=== PATIENT | female | born 1955 | race Caucasian/White ===

== ENCOUNTER 2016-07-22 19:21 | Emergency (ER) | payer OTHER ==
[2016-07-22 19:32] VITALS: BP 174/73; PULSE 78; RESP 20; TEMP 98.4
--- NOTE | 2016-07-22 20:07 | ED ---
Skin/Abscess/FB HPI - General Chief complaint: Skin/Abscess/Foreign Body Stated complaint: rash on neck and head Time Seen by Provider: 07/22/16 19:30 Source: patient, RN notes reviewed, old records reviewed Mode of arrival: ambulatory Limitations: no limitations - History of Present Illness Initial comments: This is a 60-year-old female with chief complaint of a pruritic rash over the back of her scalp for the past day. Patient states that it will radiate down her neck and towards the right shoulder. Patient states that she is concerned she may have advised her legs. She reports that she is continuing to scratch this area. She does have a history of hypothyroidism and Graves' disease. She states that she is currently taking her hypothyroid Medicine but hasn't had this checked recently. Patient states she does not see a finger grip machine operator. She denies any history of other people with rash or new contacts of any new lotions or materials. Patient states that she started itching so bad last night that she had a take a shower. Patient denies any fever or chills or other associated symptoms.Patient denies any recent fever, chills, shortness of breath , chest pain, back pain, abdominal pain, nausea vomiting, numbness or tingling, dysuria or hematuria, constipation or diarrhea, headaches or visual changes, or any other current symptoms - Related Data Home Medications Medication Instructions Recorded Confirmed Levothyroxine Sodium [Synthroid] 1 tab PO DAILY 07/22/16 07/22/16 Previous Rx's Medication Instructions Recorded Betamethasone Dipropionate 1 applic TOPICAL BID #1 bottle 07/22/16 [Diprolene 0.05% Lotion] hydrOXYzine HCL [Atarax] 10 mg PO TID #15 tab 07/22/16 predniSONE [Deltasone] 20 mg PO DAILY #7 tablet 07/22/16 Allergies Allergy/AdvReac Type Severity Reaction Status Date / Time No Known Allergies Allergy Verified 07/22/16 19:30 Review of Systems ROS Statement: Those systems with pertinent positive or pertinent negative responses have been documented in the HPI. ROS Other: All systems not noted in ROS Statement are negative. Past Medical History Past Medical History: Thyroid Disorder History of Any Multi-Drug Resistant Organisms: None Reported Past Surgical History: Section Past Psychological History: No Psychological Hx Reported Smoking Status: Never smoker Past Alcohol Use History: None Reported Past Drug Use History: None Reported General Exam - General Exam Comments Initial Comments: 16-year-old female chief complaint of scalp rash. Patient does not appear to be in any acute distress. Limitations: no limitations General appearance: alert, in no apparent distress Head exam: Present: atraumatic, normocephalic, normal inspection, other ( Erythematous like rash over the back of the scalp and neck. No evidence of lice or nits or bedbugs.) Eye exam: Present: normal appearance, PERRL, EOMI. Absent: scleral icterus, conjunctival injection, periorbital swelling ENT exam: Present: normal exam, mucous membranes moist Neck exam: Present: normal inspection. Absent: tenderness, meningismus, lymphadenopathy Respiratory exam: Present: normal lung sounds bilaterally. Absent: respiratory distress, wheezes, rales, rhonchi, stridor Cardiovascular Exam: Present: regular rate, normal rhythm, normal heart sounds. Absent: systolic murmur, diastolic murmur, rubs, gallop, clicks GI/Abdominal exam: Present: soft, normal bowel sounds. Absent: distended, tenderness, guarding, rebound, rigid Extremities exam: Present: normal inspection, full ROM, normal capillary refill. Absent: tenderness, pedal edema, joint swelling, calf tenderness Back exam: Present: normal inspection Neurological exam: Present: alert, oriented X3, CN II-XII intact Psychiatric exam: Present: normal affect, normal mood Skin exam: Present: warm, dry, intact, normal color, rash (Erythematous plaque- like rash over the back of the scalp. Patient reports it's extremely pruritic.) Course Vital Signs 07/22/16 19:30 Temperature 98.4 F Pulse Rate 78 Respiratory 20 Rate Blood Pressure 174/73 O2 Sat by Pulse 97 Oximetry Medical Decision Making - Medical Decision Making Patient is 6-year-old female with a plaque like erythematous rash over the back of the scalp and neck. Rash is similar to psoriasis. No evidence of other areas of the rash. She does have chronically dry skin. She is hypothyroid. Patient started on a steroid cream and steroid pills for the next week. Discussed we can write her for Atarax as well as Benadryl for the itching. Patient advised to follow-up with a finger grip machine operator and primary care provider. No evidence of scabies, lice or nits in the hair. Patient agrees to treatment plan will comply. Return parameters were discussed. Disposition Clinical Impression: Scalp psoriasis Disposition: HOME SELF-CARE Condition: Good Instructions: Dermatitis (ED) Additional Instructions: Patient is to follow-up with her primary care provider. Apply the lotion twice a day scalp and hair. Patient shouldn't take Benadryl and Atarax. Avoid from scratching. Continue use of the emmoliant creams over the rest of your skin. Return to the emergency department if any alarming signs or symptoms occur. Follow-up with finger grip machine operator as soon as possible. Prescriptions: Betamethasone Dipropionate [Diprolene 0.05% Lotion] 1 applic TOPICAL BID #1 bottle hydrOXYzine HCL [Atarax] 10 mg PO TID #15 tab predniSONE [Deltasone] 20 mg PO DAILY #7 tablet Referrals: All Figueroa MD [Primary Care Provider] - 1-2 days Philippe Mcconnell MD [STAFF PHYSICIAN] - 1-2 days Time of Disposition: 20:04
== END 2016-07-22 20:10 | disposition home or self-care (01) ==
LOC: EC 19:21
DX: L40.8 Other psoriasis (principal); R21 Rash and other nonspecific skin eruption; E07.9 Disorder of thyroid, unspecified; Z79.899 Other long term (current) drug therapy
CPT/HCPCS: 99283

== ENCOUNTER → 2017-07-15 | Outpatient (CLI) | payer BC ==
--- NOTE | 2017-07-15 15:00 | US ---
EXAMINATION TYPE: US thyroid st tissue head/neck DATE OF EXAM: 07/15/2017 COMPARISON: NONE CLINICAL HISTORY: Z80.8 FAM HX THYROID CA. Pt states mother has h/o thyroid CA/ Pt states h/o radiati on to thyroid approx 30 yrs ago GLAND SIZE: Right Lobe: 1.9 x 0.6 x 1.0 cm Overall Parenchyma: heterogenous Left Lobe: 2.2 x 0.8 x 0.7 cm Overall Parenchyma: heterogeneous Isthmus Thickness: 0.2 cm Bilateral neck scanned, no evidence of lymphadenopathy. Thyroid heterogeneous, small in size consiste nt with pt's history of radiation. IMPRESSION: Thyroid tissue is heterogeneous correlate for thyroiditis. No sizable discrete thyroid nodule.
== END | disposition home or self-care (01) ==
LOC: RADUSWWP 14:34
PROVIDERS: ATTEND Internal Medicine Endocrinology, Diabetes & Metabolism
DX: Z09 Encounter for follow-up examination after completed treatment for conditions other than malignant neoplasm (principal); R93.8 Abnormal findings on diagnostic imaging of other specified body structures; Z80.9 Family history of malignant neoplasm, unspecified
CPT/HCPCS: 76536

== ENCOUNTER → 2017-08-04 | Outpatient (CLI) | payer BC ==
--- NOTE | 2017-08-05 08:02 | MR ---
EXAMINATION TYPE: MR knee RT wo con DATE OF EXAM: 08/04/2017 COMPARISON: NONE HISTORY: Pain in right inner knee TECHNIQUE: Multiplanar, multisequence imaging of the right knee is performed without IV contrast. FINDINGS: MEDIAL MENISCUS: There is an oblique tear of the posterior horn of the medial meniscus contiguous wit h the inferior articular surface. There is associated meniscal extrusion of 3 mm and 2 mm paramenisca l cyst. LATERAL MENISCUS: There is blunting of the free edge of the posterior horn of the lateral meniscus in addition to a discoid lateral meniscus. Remainder of the lateral meniscus is unremarkable. CRUCIATE LIGAMENTS: The anterior and posterior cruciate ligaments are intact and unremarkable. COLLATERAL LIGAMENTS: The medial collateral ligament and lateral collateral ligament complex are inta ct. High signal seen superficial and deep to the medial collateral ligament indicative of low-grade i njury and suggestive of mild MCL bursitis. EXTENSOR MECHANISM: Visualized quadriceps and patellar tendons are intact. EFFUSION: Very small joint effusion is seen with minimal complexity superiorly such as on PD axial f at sat image 19 and 18 at the lateral aspect. POPLITEAL CYST: There is a multiloculated popliteal cyst measuring up to 3.5 x 1.7 cm situated betwe en the medial head of the gastrocnemius and semimembranosus tendon. TRICOMPARTMENT SPACES: There are small marginal osteophytes of the medial and lateral compartments an d of the patellofemoral compartment with very mild medial compartment joint space narrowing. Joint sp selena narrowing is seen in the patellofemoral compartment. CARTILAGE: There is a full-thickness cartilaginous defect of the medial facet of the patella extendin g to the patellar apex and involving the patellar apex overall measuring 1.5 cm. There is also full-t hickness cartilaginous defect of the lateral patellar facet measuring 1.4 cm. Trochlear cartilage dem onstrates signal heterogeneity laterally and fissuring. There is a full-thickness cartilaginous defects of the medial aspect of the medial femoral condyle me asuring 5 mm at its nonweightbearing surface otherwise there is generalized cartilaginous thinning of the medial compartment. Cartilage of the lateral compartment is unremarkable without partial or full -thickness defects. BONE MARROW SIGNAL: No focal abnormal marrow signal is appreciated. OTHER: Mild nonspecific prepatellar subcutaneous edema and infrapatellar subcutaneous edema.. IMPRESSION: 1. Oblique tear of the posterior horn of the medial meniscus with small 2 mm parameniscal cyst and as sociated 3 mm of meniscal extrusion. Superficial to this there is evidence of low-grade medial collat eral ligament sprain and superficial fluid and may correlate with MCL bursitis. 2. Small tear of the free edge of the posterior horn of the lateral meniscus and overall discoid meni scus morphology. 3. 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 4. Small minimally complex joint effusion suggesting synovitis and 3.5 [address]oculated [address]
== END | disposition home or self-care (01) ==
LOC: RADMRIMAIN 12:16
PROVIDERS: ATTEND Orthopaedic Surgery
DX: S83.281A Other tear of lateral meniscus, current injury, right knee, initial encounter (principal); S83.241A Other tear of medial meniscus, current injury, right knee, initial encounter; S83.411A Sprain of medial collateral ligament of right knee, initial encounter; M17.11 Unilateral primary osteoarthritis, right knee

== ENCOUNTER → 2017-11-26 | Outpatient (CLI) | payer BC ==
--- NOTE | 2017-11-26 09:48 | US ---
EXAMINATION TYPE: US thyroid st tissue head/neck DATE OF EXAM: 11/26/2017 COMPARISON: NONE CLINICAL HISTORY: Z80.8 FAM HX THYROID CA. Thyroid radiated 30 years ago , [pt on synthroid 30 years GLAND SIZE: Right Lobe: 2.2 x 0.6 x 0.6 cm Overall Parenchyma: heterogenous Left Lobe: 1.7 x 0.6 x 0.4 cm Overall Parenchyma: heterogenous Isthmus Thickness: 0.3 cm NODULES RIGHT: # of nodules measured on right: 0 LEFT: # of nodules measured on left: 0 ISTHMUS: # of nodules measured in the isthmus: 0 Bilateral neck scanned, no evidence of lymphadenopathy. IMPRESSION: 1. Negative thyroid ultrasound
== END | disposition home or self-care (01) ==
LOC: RADUSWWP 07:41
PROVIDERS: ATTEND Internal Medicine Endocrinology, Diabetes & Metabolism
DX: Z13.228 Encounter for screening for other metabolic disorders (principal); Z80.8 Family history of malignant neoplasm of other organs or systems
CPT/HCPCS: 76536

== ENCOUNTER → 2018-08-09 | Outpatient (CLI) | payer SELFPAY | END | disposition home or self-care (01) | LOC: LABWHC1 13:30 | PROVIDERS: ATTEND Internal Medicine Endocrinology, Diabetes & Metabolism | DX: E89.0 Postprocedural hypothyroidism (principal) | CPT/HCPCS: 36415; 84443 ==

== ENCOUNTER → 2019-02-23 | Outpatient (CLI) | payer OTHER | END | disposition home or self-care (01) | LOC: LABWHC1 12:46 | PROVIDERS: ATTEND Internal Medicine Endocrinology, Diabetes & Metabolism | DX: E03.8 Other specified hypothyroidism (principal) | CPT/HCPCS: 36415; 84443 ==

== ENCOUNTER 2019-03-19 12:18 | Emergency (ER) | payer OTHER ==
[2019-03-19 12:39] VITALS: RESP 18; TEMP 97.9
[2019-03-19] MEDS ORDERED: methylPREDNISolone SOD SUCCI 125 MG/2 ML VIAL IM ONE (13:16)
--- NOTE | 2019-03-19 13:49 | XR ---
EXAMINATION TYPE: XR chest 2V DATE OF EXAM: 03/19/2019 COMPARISON: NONE HISTORY: Cough, congestion, and shortness of breath TECHNIQUE: Frontal and lateral views of the chest are obtained. FINDINGS: There is chronic parenchymal change without suspicious focal air space opacity, pleural ef fusion, or pneumothorax seen. The cardiac silhouette size is upper limits of normal. The osseous s tructures are intact. IMPRESSION: Chronic changes without suspicious acute pulmonary process.
[2019-03-19] MEDS ORDERED: IPRATROPIUM-ALBUTEROL 3 ML NEB INHALATION STA (13:50)
[2019-03-19 14:20] VITALS: PULSE 100
--- NOTE | 2019-03-19 14:30 | ED ---
URI HPI - General Chief Complaint: Upper Respiratory Infection Stated Complaint: SOB, congestion Time Seen by Provider: 03/19/19 12:48 Source: patient, family Mode of arrival: ambulatory Limitations: no limitations - History of Present Illness Initial Comments: 64-year-old female with history of COPD presents emergency department today for chief complaint of cough congestion. Patient states that she has had cough and congestion for the past 2-3 days. She states she is now having significant sputum production. She states her sick people in her home mom with diagnosed RSV. Patient denies any chest pain. She states when she coughs hard she is short of breath otherwise she denies any shortness of breath at rest. Patient denies any leg swelling denies any abdominal pain and epigastric pain nausea vomiting or diarrhea. Patient denies recording any fevers. Patient states that she performed a DuoNeb prior to arrival. Patient denies recent antibiotic use review of systems negative upon arrival patient appears well signs of acute distress - Related Data Home Medications Medication Instructions Recorded Confirmed Levothyroxine Sodium [Synthroid] 1 tab PO DAILY 07/22/16 07/22/16 Previous Rx's Medication Instructions Recorded Betamethasone Dipropionate 1 applic TOPICAL BID #1 bottle 07/22/16 [Diprolene 0.05% Lotion] hydrOXYzine HCL [Atarax] 10 mg PO TID #15 tab 07/22/16 predniSONE [Deltasone] 20 mg PO DAILY #7 tablet 07/22/16 Azithromycin [Zithromax Z-pack] 0 mg PO DIRECTED #6 tab 03/19/19 predniSONE 20 mg PO DAILY 5 Days #5 tab 03/19/19 Allergies Allergy/AdvReac Type Severity Reaction Status Date / Time No Known Allergies Allergy Verified 03/19/19 12:37 Review of Systems ROS Statement: Those systems with pertinent positive or pertinent negative responses have been documented in the HPI. ROS Other: All systems not noted in ROS Statement are negative. Past Medical History Past Medical History: Thyroid Disorder History of Any Multi-Drug Resistant Organisms: None Reported Past Surgical History: Section Past Psychological History: No Psychological Hx Reported Smoking Status: Current every day smoker Past Alcohol Use History: None Reported Past Drug Use History: None Reported General Exam - General Exam Comments Initial Comments: General: The patient is awake and alert, in no distress, and does not appear acutely ill. Eye: +3 mm pupils are equal, round and reactive to light, extra-ocular movements are intact. No nystagmus. There is normal conjunctiva bilaterally. No signs of icterus. No photophobia Ears, nose, mouth and throat: There are moist mucous membranes and no oral lesions. Oropharynx was not erythematous there is no tonsillar enlargement exudates or lesions. Uvula midline. Tympanic membranes are not erythematous or is no effusions bulging or retraction. No tenderness to palpation of the mastoid. No anterior cervical lymphadenopathy. Rhinorrhea, clear and bilateral nares. No tripoding, no drooling. Neck: The neck is supple, there is no tenderness or JVD. No nuchal rigidity Cardiovascular: There is a regular rate and rhythm. No murmur, rub or gallop is appreciated. Respiratory: Respirations are non-labored, breath sounds are equal. Mild expiratory wheeze. No stridor, rales, or rhonchi. No retractions or abdominal breathing. Gastrointestinal: Soft, non-distended, non-tender abdomen without masses or organomegaly noted. There is no rebound or guarding present. Bowel sounds are unremarkable. Musculoskeletal: Normal ROM, no tenderness. Strength 5/5. Sensation intact. Radial pulses equal bilaterally 2+. Neurological: A&O x 3. CN II-XII intact grossly, There are no obvious motor or sensory deficits. Coordination appears grossly intact. Speech appears normal, no muffling. Skin: Skin is warm and dry and no rashes or lesions are noted. No extremity edema Psychiatric: Cooperative Limitations: no limitations Course Vital Signs 03/19/19 03/19/19 03/19/19 12:37 13:30 14:00 Temperature 97.9 F Pulse Rate 106 H 89 88 Respiratory 18 18 Rate Blood Pressure 168/85 155/86 166/79 O2 Sat by Pulse 95 98 99 Oximetry 03/19/19 03/19/19 14:11 14:19 Temperature Pulse Rate 104 H 100 Respiratory Rate Blood Pressure O2 Sat by Pulse Oximetry Medical Decision Making - Medical Decision Making Very well-appearing 64 female with history of COPD presented for cough congestion of positive sick contacts at home. Influenza testing negative chest x-ray revealed no findings consistent with a localized pneumonia however there is flattening of the diaphragm that is consistent patient previous diagnosis of COPD. Patient states she has no shortness of breath she is in a coughing fit. Patient denies any chest pain. Admits to sputum production. Givens patient history of COPD patient will be treated with azithromycin and steroids. Patient initially refused DuoNeb treatment states she has some at home however later agreed to treatment. Patient improvement of air movement as well as x-ray wheeze after treatment. Patient appears well no signs of acute distress she states she is ready for discharge discussed case with attending by Dr. Ochoa was agreeable care plan of DuoNeb treatments at home steroids azithromycin. Patient discharged appearing well Ventricular rate 92 beats were minute, AL interval 170 ms, QRS duration 94 ms, QT/QTC 36/[address] elevation or depression normal R-wave progression. EKG percent interpreted and reviewed them attending provider - Lab Data Lab Results 03/19/19 Range/Units 13:50 Influenza Type A RNA Not Detected (Not Detectd) Influenza Type B (PCR) Not Detected (Not Detectd) Disposition Clinical Impression: Upper respiratory infection Disposition: HOME SELF-CARE Condition: Good Instructions (If sedation given, give patient instructions): Upper Respiratory Infection (ED) Additional Instructions: Please use medication as discussed. Please follow-up with family doctor in the next 2 days. Please return to emergency room if the symptoms increase or worsen or for any other concerns. Prescriptions: predniSONE 20 mg PO DAILY 5 Days #5 tab Azithromycin [Zithromax Z-pack] 0 mg PO DIRECTED #6 tab Is patient prescribed a controlled substance at d/c from ED?: No Referrals: All Figueroa MD [Primary Care Provider] - 1-2 days Time of Disposition: 14:29
[2019-03-19 14:46] VITALS: BP 166/79
== END 2019-03-19 14:46 | disposition home or self-care (01) ==
LOC: EC 12:18
DX: J06.9 Acute upper respiratory infection, unspecified (principal); E07.9 Disorder of thyroid, unspecified; F17.200 Nicotine dependence, unspecified, uncomplicated; Z87.09 Personal history of other diseases of the respiratory system; Z79.890 Hormone replacement therapy
CPT/HCPCS: 94640; 93005; 87502; 71046; 99285; 96372; J2930

== ENCOUNTER → 2019-05-23 | Outpatient (CLI) | payer OTHER | END | disposition home or self-care (01) | LOC: LABWHC1 13:32 | PROVIDERS: ATTEND Internal Medicine Endocrinology, Diabetes & Metabolism | DX: E03.8 Other specified hypothyroidism (principal) | CPT/HCPCS: 36415; 84443 ==

== ENCOUNTER → 2019-11-15 | Outpatient (CLI) | payer SELFPAY | END | disposition home or self-care (01) | LOC: LABWHC1 11:26 | PROVIDERS: ATTEND Internal Medicine Endocrinology, Diabetes & Metabolism | DX: E03.8 Other specified hypothyroidism (principal) | CPT/HCPCS: 36415; 84443 ==

== ENCOUNTER → 2020-08-01 | Outpatient (CLI) | payer OTHER | END | disposition home or self-care (01) | LOC: LABWHC1 14:58 | PROVIDERS: ATTEND Internal Medicine Endocrinology, Diabetes & Metabolism | DX: E03.8 Other specified hypothyroidism (principal) | CPT/HCPCS: 36415; 84443 ==

== ENCOUNTER → 2021-02-05 | Outpatient (CLI) | payer MEDICARE | END | disposition home or self-care (01) | LOC: LABWHC1 10:51 | PROVIDERS: ATTEND Internal Medicine Endocrinology, Diabetes & Metabolism | DX: E03.8 Other specified hypothyroidism (principal) | CPT/HCPCS: 36415; 84443 ==

== ENCOUNTER → 2021-10-21 | Outpatient (CLI) | payer MEDICARE ==
[2021-10-21 23:26] LABS: T4, Free (Free Thyroxine) 0.99 ng/dL (0.800-1.800)
== END | disposition home or self-care (01) ==
LOC: LABWHC1 14:58
PROVIDERS: ATTEND Internal Medicine Endocrinology, Diabetes & Metabolism
DX: E03.8 Other specified hypothyroidism (principal)
CPT/HCPCS: 36415; 84439; 84443

== ENCOUNTER → 2022-11-26 | Outpatient (CLI) | payer MEDICARE | END | disposition home or self-care (01) | LOC: LABWHC1 14:54 | PROVIDERS: ATTEND Internal Medicine Endocrinology, Diabetes & Metabolism | DX: E03.9 Hypothyroidism, unspecified (principal) | CPT/HCPCS: 36415; 84443 ==

== ENCOUNTER → 2023-05-18 | Outpatient (CLI) | payer MEDICARE ==
--- NOTE | 2023-05-18 15:12 | MM ---
Reason for Exam: Screening (asymptomatic). Patient History: Menarche at age 13. First Full-Term at age 17. Postmenopausal. Maternal aunt had breast cancer. Risk Values: Wendy 5 year model risk: 1.2%. NCI Lifetime model risk: 4.0%. Prior Study Comparison: No prior studies available for comparison. Tissue Density: The breast tissue is heterogeneously dense. This may lower the sensitivity of mammography. Findings: Analyzed By CAD. Dense parenchymal tissue is present bilaterally. Benign vascular calcifications present bilaterally. There are small rounded densities within the right breast with partially obscured margins. There is an oval density within the inferior left breast lower outer quadrant. Short-term follow-up is recommended. Left breast:No suspicious groups of microcalcifications, spiculated or lobular masses, architectural distortion or other secondary signs of malignancy are mammographically apparent. Overall Assessment: Incomplete: need additional imaging evaluation, BI-RAD 0 Management: Diagnostic Breast Ultrasound of both breasts. Diagnostic Mammogram of both breasts. A negative mammogram report should not preclude additional follow up of suspicious palpable abnormalities. Patient should continue monthly self breast exam. A clinical breast exam by your physician is recommended on an annual basis and results should be correlated with mammographic findings. Electronically signed and approved by: Harvey Maldonado D.O. Radiologis
== END | disposition home or self-care (01) ==
LOC: RADMAMWWP 12:03
PROVIDERS: ATTEND Family Medicine
DX: Z12.31 Encounter for screening mammogram for malignant neoplasm of breast (principal); Z78.0 Asymptomatic menopausal state; Z80.3 Family history of malignant neoplasm of breast
CPT/HCPCS: 77063; 77067

== ENCOUNTER → 2023-06-23 | Outpatient (CLI) | payer MEDICARE | END | disposition home or self-care (01) | LOC: LABWHC1 12:00 | PROVIDERS: ATTEND Internal Medicine Endocrinology, Diabetes & Metabolism | DX: E03.8 Other specified hypothyroidism (principal) | CPT/HCPCS: 36415; 84443 ==

== ENCOUNTER → 2023-12-07 | Outpatient (CLI) | payer MEDICARE ==
--- NOTE | 2023-12-07 18:56 | MR ---
EXAMINATION TYPE: MR brain/cspine wo/w DATE OF EXAM: 12/07/2023 COMPARISON: None HISTORY: Left arm weakness. CONTRAST: Performed utilizing 11 mL intravenous Gadavist gadolinium contrast. TECHNIQUE: Multiplanar, multiecho imaging on a 3.0 Nila magnet is performed through the brain. Stud y is performed within 24 hours of arrival to the hospital. The craniovertebral junction is normal. The pituitary is normal. Diffusion-weighted imaging is performed. No abnormal hyperintensity is present to suggest an acute i ntracranial infarct or acute ischemic change. There is some minimal periventricular white matter hyperintensity on inversion recovery weighted sequ ences, likely on the basis of chronic white matter ischemic changes. No abnormal enhancement is evident within the calvarium. Ventricles and sulci are appropriate for the patient age. Retention cyst may be within the left maxillary sinus. IMPRESSION: 1. Minimal chronic appearing white matter ischemic type changes with some atrophy. EXAMINATION TYPE: MR brain/cspine wo/w DATE OF EXAM: 12/07/2023 COMPARISON: None HISTORY: Left arm weakness. CONTRAST: Performed utilizing 11 mL intravenous Gadavist gadolinium contrast. TECHNIQUE: Multiplanar multiecho imaging on a 3.0 Nila magnet is performed through the cervical spin e. FINDINGS: The craniovertebral junction is normal. Vertebral body alignment is normal. No suspiciou s enhancement is evident. C7-T1: No focal disc herniation or significant disc bulge is evident. No spinal canal stenosis or n eural foraminal stenosis is present. C6-7: Broad-based left paracentral disc herniation is present with moderate anterior thecal sac impre ssion. This comes in close approximation with the spinal cord. No cord deformity or spinal canal sten osis is evident. Correlate with left radicular symptoms.. C5-6: Broad-based disc bulge is present with anterior thecal sac compression. Cord contact and some c ord deformity is present. This is greater in the right paracentral region than on the left. Underlyin g spinal canal narrowing may be present. Bilateral foraminal narrowing is present. C4-5: A broad based disc bulge is present with moderate anterior thecal sac compression. Cord contact is evident. No deformity is not evident. Bilateral foraminal narrowing is present. C3-4: No focal disc herniation or significant disc bulge is evident. No spinal canal stenosis or benjy ral foraminal stenosis is present. C2-3: No focal disc herniation or significant disc bulge is evident. No spinal canal stenosis or benjy ral foraminal stenosis is present. IMPRESSION: 1. Left paracentral disc herniation C6-7 with moderate anterior thecal sac and impression, correlate for left radicular symptoms. 2. Broad-based disc bulge C5-6, greater in the right paracentral region in the left paracentral regio n. Spinal canal narrowing appears to be present with some moderate bilateral foraminal narrowing pres ent. Cord contact is evident at this level. 3. Broad-based disc bulge C4-5 with cord contact without cord deformity. [facility], , 12/07/2023 6:53 PM
== END | disposition home or self-care (01) ==
LOC: RADMRIMAIN 17:20
PROVIDERS: ATTEND Psychiatry & Neurology Neurology
DX: R29.898 Other symptoms and signs involving the musculoskeletal system
CPT/HCPCS: 70553; 72156

== ENCOUNTER 2024-03-23 12:29 | Emergency (ER) | payer MEDICARE ==
[2024-03-23 12:47] VITALS: TEMP 98.1
--- NOTE | 2024-03-23 13:38 | CT ---
EXAMINATION TYPE: CT brain wo con DATE OF EXAM: 03/23/2024 1:30 PM COMPARISON: None. CLINICAL INDICATION: Female, 69 years old with history of fall head injury, left sided weakness TECHNIQUE: CT of the brain is performed utilizing 3 mm thick sections through the posterior fossa and 3 mm thick sections through the remaining calvarium. Study is performed within 24 hours of arrival to the hospital. Contrast used: mL of , (none if empty) CT DLP: 1125.4 mGycm, Automated exposure control for dose reduction was used. FINDINGS: No abnormal hyperdensity is present to suggest an acute intracranial hemorrhage. No mass lesion is evident. No acute infarcts are evident. Ventricles and sulci are appropriate for the patient age. Paranasal sinuses and mastoid air cells within the [id number] are clear. IMPRESSION: 1. No acute intracranial process. Follow up MRI can be performed as clinically indicated. [facility], Workstation: [facility], 03/23/2024 1:36 PM
--- NOTE | 2024-03-23 13:54 | ED ---
General Adult HPI - General Chief complaint: Head Injury Stated complaint: Fall-head injury Time Seen by Provider: 03/23/24 13:18 Source: patient, family, RN notes reviewed Mode of arrival: ambulatory Limitations: no limitations - History of Present Illness Initial comments: Patient is a 69-year-old female present to the emergency department following a fall. Incident occurred 2 days ago. Patient did strike her head. No loss of consciousness. Patient previously was on aspirin. Patient has left-sided deficits and off balance from her neck problem. Patient is scheduled to have neck surgery tomorrow for this. These are not new symptoms. Patient only has mild discomfort of her head. Patient does have mild discomfort left ribs as well. Patient states this occurred while getting up from the fall, patient states she pulled a muscle. No discomfort at rest. Only discomfort with movement. - Related Data Home Medications Medication Instructions Recorded Confirmed Levothyroxine Sodium [Synthroid] 1 tab PO DAILY 07/22/16 07/22/16 Previous Rx's Medication Instructions Recorded Betamethasone Dipropionate 1 applic TOPICAL BID #1 bottle 07/22/16 [Diprolene 0.05% Lotion] hydrOXYzine HCL [Atarax] 10 mg PO TID #15 tab 07/22/16 predniSONE [Deltasone] 20 mg PO DAILY #7 tablet 07/22/16 Azithromycin [Zithromax Z-pack (6 0 mg PO DIRECTED #6 tab 03/19/19 tabs)] predniSONE [Deltasone] 20 mg PO DAILY 5 Days #5 tab 03/19/19 Allergies Allergy/AdvReac Type Severity Reaction Status Date / Time No Known Allergies Allergy Verified 03/23/24 12:47 Review of Systems ROS Statement: Those systems with pertinent positive or pertinent negative responses have been documented in the HPI. ROS Other: All systems not noted in ROS Statement are negative. Constitutional: Denies: fever Eyes: Denies: eye pain Cardiovascular: Reports: as per HPI Endocrine: Denies: fatigue Gastrointestinal: Denies: abdominal pain Musculoskeletal: Reports: as per HPI. Denies: back pain Neurological: Reports: as per HPI Past Medical History Past Medical History: Hyperlipidemia, Thyroid Disorder History of Any Multi-Drug Resistant Organisms: None Reported Past Surgical History: Section Past Psychological History: No Psychological Hx Reported Smoking Status: Former smoker Past Alcohol Use History: None Reported Past Drug Use History: None Reported General Exam Limitations: no limitations General appearance: alert, in no apparent distress Head exam: Present: other (Left forehead ecchymosis) Eye exam: Present: normal appearance Neck exam: Present: normal inspection. Absent: tenderness Respiratory exam: Present: normal lung sounds bilaterally Cardiovascular Exam: Present: regular rate, normal rhythm GI/Abdominal exam: Present: soft. Absent: distended, tenderness, guarding, rebound, rigid Extremities exam: Present: normal inspection Neurological exam: Present: other (Left-sided weakness) Psychiatric exam: Present: normal affect, normal mood Skin exam: Present: other (Ecchymosis left forehead) Course Vital Signs 03/23/24 03/23/24 12:40 14:16 Temperature 98.1 F Pulse Rate 77 71 Respiratory 18 20 Rate Blood Pressure 141/82 149/67 O2 Sat by Pulse 95 97 Oximetry Medical Decision Making - Medical Decision Making Was pt. sent in by a medical professional or institution (, PA, FAMILY COUNSELOR, urgent care, hospital, or half-way...) When possible be specific @ -No Did you speak to anyone other than the patient for history (EMS, parent, family, police, friend...)? What history was obtained from this source @ -Daughter is present helps provide history including her concern for potential rib injury Did you review nursing and triage notes (agree or disagree)? Why? @ -I reviewed and agree with nursing and triage notes Were old charts reviewed (outside hosp., previous admission, EMS record, old EKG, old radiological studies, urgent care reports/EKG's, half-way records)? Report findings @ -No old charts were reviewed Differential Diagnosis (chest pain, altered mental status, abdominal pain women, abdominal pain men, vaginal bleeding, weakness, fever, dyspnea, syncope, headache, dizziness, GI bleed, back pain, seizure, CVA, palpatations, mental health, musculoskeletal)? @ -Differential Musculoskeletal Muscular strain, contusion, ligament sprain, fracture, arthritis, septic arthritis, bursitis, cellulitis, muscle spasm, nerve compression, DVT, arterial occlusion, herpes zoster, electrolyte abnormality, tumor.... This is not meant to be in all inclusive list EKG interpreted by me (3pts min.). @ -As above X-rays interpreted by me (1pt min.). @ -Left ribs and chest x-ray shows left sixth and seventh rib fractures. Questionable [address] interpreted by me (1pt min.). @ -CT scan of the brain without acute abnormality U/S interpreted by me (1pt. min.). @ -None done What testing was considered but not performed or refused? (CT, X-rays, U/S, labs)? Why? @ -None What meds were considered but not given or refused? Why? @ -None Did you discuss the management of the patient with other professionals (professionals i.e. , PA, FAMILY COUNSELOR, lab, RT, psych nurse, psych social worker, sole rounder, teacher, home school liaison officer, behavioral health case manager)? Give summary @ -No Was smoking cessation discussed for >3mins.? @ -No Was critical care preformed (if so, how long)? @ -No Were there social determinants of health that impacted care today? How? (Homelessness, low income, unemployed, alcoholism, drug addiction, transportation, low edu. Level, literacy, decrease access to med. care, skilled nursing, rehab)? @ -No Was there de-escalation of care discussed even if they declined (Discuss DNR or withdrawal of care, Hospice)? DNR status @ -No What co-morbidities impacted this encounter? (DM, HTN, Smoking, COPD, CAD, Cancer, CVA, ARF, Chemo, Hep., AIDS, mental health diagnosis, sleep apnea, morbid obesity)? @ -None Was patient admitted / discharged? Hospital course, mention meds given and route, prescriptions, significant lab abnormalities, going to OR and other pertinent info. @ -Patient presents with fall with head injury and left rib pain. CT head unremarkable. X-ray of the ribs with fracture. Patient and family updated. Patient has scheduled neck surgery tomorrow and they are advised to notify their surgeon prior to going through with her procedure, family states he will call first thing in the morning. Undiagnosed new problem with uncertain prognosis? @ -No Drug Therapy requiring intensive monitoring for toxicity (Heparin, Nitro, Insulin, Cardizem)? @ -No Were any procedures done? @ -No Diagnosis/symptom? @ -Left rib fractures, head injury Acute, or Chronic, or Acute on Chronic? @ -Acute, acute Uncomplicated (without systemic symptoms) or Complicated (systemic symptoms)? @ -Default Side effects of treatment? @ -No Exacerbation, Progression, or Severe Exacerbation? @ -No Poses a threat to life or bodily function? How? (Chest pain, [place], NM, pneumonia, PE, COPD, DKA, ARF, appy, cholecystitis, CVA, Diverticulitis, Homicidal, Suic idal, threat to staff... and all critical care pts) @ -Threat to respiratory function Disposition Clinical Impression: Rib fractures, Head injury Disposition: HOME SELF-CARE Condition: Stable Instructions (If sedation given, give patient instructions): Head Injury (ED), Rib Fracture (ED) Additional Instructions: Incentive spirometry every 1 hour while awake. Please do follow-up with your primary care physician in the next couple of days for recheck. Please call your surgeon first thing in the morning and notify them of rib fractures prior to considering going through with surgery. Return for fevers, difficulty breathing, confusion or weakness, worsening symptoms or any other concerns. Is patient prescribed a controlled substance at d/c from ED?: No Referrals: All Figueroa MD [Primary Care Provider] - 1-2 days Time of Disposition: 14:43
--- NOTE | 2024-03-23 14:09 | XR ---
EXAMINATION TYPE: XR ribs LT w pa chest xray DATE OF EXAM: 03/23/2024 2:05 PM COMPARISON: Chest radiograph 03/13/2019. CLINICAL INDICATION: Female, 69 years old with history of fall; [facility] TECHNIQUE: XR ribs LT w pa chest xray; Frontal and oblique views of the ribs with frontal chest radio graph. FINDINGS: Mildly displaced fractures of the left lateral sixth and seventh ribs and likely nondisplac ed fractures of the fifth and eighth ribs. Cardiac silhouette within normal limits for size. No acute focal consolidation. No pneumothorax. No pleural effusion. IMPRESSION: Displaced and nondisplaced acute left-sided rib fracture deformities as above. [facility], , 03/23/2024 2:06 PM
[2024-03-23 14:18] VITALS: BP 149/67; PULSE 71; RESP 20
[2024-03-23] MEDS: ACET/COD 300 MG/30 MG STARTER PACK 6 TAB BTL PO STA (15:07)
== END 2024-03-23 15:14 | disposition home or self-care (01) ==
LOC: EC 12:29
DX: S22.32XA Fracture of one rib, left side, initial encounter for closed fracture (principal); S09.90XA Unspecified injury of head, initial encounter; W19.XXXA Unspecified fall, initial encounter; Z87.891 Personal history of nicotine dependence
CPT/HCPCS: 70450; 99284

== ENCOUNTER → 2024-08-01 | Outpatient (CLI) | payer MEDICARE ==
[2024-08-01 19:02] LABS: T4, Free (Free Thyroxine) 2.64 ng/dL (0.80-1.80)
== END | disposition home or self-care (01) ==
LOC: LABWHC1 13:29
PROVIDERS: ATTEND Internal Medicine Endocrinology, Diabetes & Metabolism
DX: E03.8 Other specified hypothyroidism (principal)
CPT/HCPCS: 36415; 84436; 84439; 84443